=== PATIENT | male | born 1965 ===

== ENCOUNTER 2023-06-23 11:18 | Inpatient (IN) ==
[2023-06-23] MEDS ORDERED: fentaNYL 100 mcg/2 ml 50 MCG/ML VIAL ONE ×2 (11:26→11:28)
[2023-06-23] MEDS: Heparin - STEMI 5,000 UNITS/ML 1 ml VIAL IV ONE ×2 (11:27→11:51)
[2023-06-23] MEDS: fentaNYL 100 mcg/2 ml 50 MCG/ML VIAL IV SLOW PU ONE (11:27)
[2023-06-23] MEDS ORDERED: Midazolam 5 mg/5 ml VIAL 1 mg/ml 5 ml VIAL (5 mg) ONE (11:28)
[2023-06-23] MEDS ORDERED: Heparin 1,000 UNIT/ML 10 ml (10,000 UNITS) CATHLAB/DIALYSIS ONE (11:28)
[2023-06-23] MEDS ORDERED: VERAPAMIL 2.5 MG/ML 2 ML VIAL ** 5 mg/2 ml ONE (11:28)
[2023-06-23] MEDS ORDERED: nitroGLYCERIN DRIP 25,000 MCG/250 ML BTL ONE (11:29)
[2023-06-23] MEDS ORDERED: Iohexol 350 (CONTRAST) 200 ML MDV IV ONE (11:29)
[2023-06-23] MEDS ORDERED: Lidocaine 1% MPF 5 ML VIAL ONE (11:29)
[2023-06-23] MEDS ORDERED: Heparin 2 UNITS/ML 1000 mls 2,000 ML IV ONE (11:29)
[2023-06-23 11:33] LABS: ABS Basophils 0.1 10^3/uL (0.0-0.1); ABS Eosinophils 0.1 10^3/uL (0.0-0.5); ABS Lymphocytes 2.8 10^3/uL (1.0-4.8); ABS Monocytes 1.5 10^3/uL (0.0-1.1); ABS Neutrophils 5.7 10^3/uL (1.5-7.6); ABS Nucleated RBC 0.01 10^3/ul; Eosinophil % 1.2 %; Hematocrit 42.1 % (38-53); Hemoglobin 14.8 g/dL (13.2-16.3); Lymphocyte % 27.7 %; Mean Corpuscular Hemoglobin 31.9 pg (27-33); Mean Corpuscular Volume 91.1 fL (80-97); Mean Platelet Volume 7.6 fL (7.5-11.2); Platelet Count 309 10^3/uL (150-450); Red Blood Count 4.62 10^6/uL (4.06-5.63); Red Cell Distribution Width 12.7 % (12-17); White Blood Count 10.1 10^3/uL (3.6-10.2)
[2023-06-23] MEDS ORDERED: Morphine 4 MG/ML VIAL (1 ml) ONE (11:48)
[2023-06-23 11:49] LABS: INR 0.98 (0.83-1.13)
[2023-06-23] MEDS: Morphine 4 MG/ML VIAL (1 ml) IV ONE (11:50)
[2023-06-23 11:57] LABS: Albumin 4.5 g/dL (3.2-5.2); Albumin/Globulin Ratio 1.9 (1-3); Calcium 9.6 mg/dL (8.6-10.3); Creatinine, Serum 1.14 mg/dL (0.67-1.17); Globulin 2.4 g/dL (2-4); Magnesium 2.1 mg/dL (1.9-2.7); Potassium 3.7 mmol/L (3.5-5.0); Total Bilirubin 0.7 mg/dL (0.2-1.0); Total Protein 6.9 g/dL (6.4-8.9); eGFR CKD-EPI 75.5 (>60)
[2023-06-23] MEDS ORDERED: Bivalirudin 250 MG VIAL ONE ×2 (12:14→12:29)
[2023-06-23] MEDS ORDERED: Eptifibatide IV (Load dose) 2 MG/ML 10 ml VIAL ONE ×2 (13:16→13:30)
[2023-06-23] MEDS ORDERED: niCARdipine 0.1MG/ML IVPREMIX 20 MG/200 ML BAG IV ONE (13:16)
[2023-06-23] MEDS ORDERED: Iohexol 350 (CONTRAST) 100 ML PAK IV ONE (13:24)
[2023-06-23] MEDS ORDERED: Heparin 2 UNITS/ML 1000 mls 1,000 ML IV ONE (13:34)
[2023-06-23] MEDS ORDERED: Morphine 2 MG/ML SYRINGE IV PRN (14:21)
[2023-06-23 14:58] LABS: ABS Lymphocytes 0.8 10^3/uL (1.0-4.8); ABS Monocytes 0.7 10^3/uL (0.0-1.1); ABS Neutrophils 9.9 10^3/uL (1.5-7.6); ABS Nucleated RBC 0.01 10^3/ul; Eosinophil % 0.3 %; Hematocrit 38.4 % (38-53); Hemoglobin 13.5 g/dL (13.2-16.3); Mean Corpuscular Hemoglobin 32.3 pg (27-33); Mean Corpuscular Hgb Conc 35.3 g/dL (31-36); Mean Corpuscular Volume 91.6 fL (80-97); Mean Platelet Volume 7.8 fL (7.5-11.2); Platelet Count 246 10^3/uL (150-450); Red Blood Count 4.19 10^6/uL (4.06-5.63); Red Cell Distribution Width 12.4 % (12-17); White Blood Count 11.4 10^3/uL (3.6-10.2)
[2023-06-23] MEDS: NS 0.9% 1000 ml BAG 1,000 ML IV SCH (15:07)
[2023-06-23 15:24] LABS: High Sensitivity Troponin 1 Hr 9214 pg/mL (<20)
[2023-06-23] MEDS: Heparin DRIP 25,000 UNITS BAG 25,000 UNITS/250 ML BAG IV SCH (15:45)
[2023-06-23 15:49] LABS: Creatinine, Serum 1.01 mg/dL (0.67-1.17); eGFR CKD-EPI 87.3 (>60)
[2023-06-23] MEDS: methylPREDNISolone SOD SUCC 125 mg 2 ML VIAL IV ONE (17:47)
[2023-06-23] MEDS: methylPREDNISolone SOD SUCC 40 mg/ml 1 ml VIAL ONE (17:47)
[2023-06-23] MEDS: Pantoprazole VIAL 40 MG VIAL IV SCH (19:25)
[2023-06-23] MEDS: Heparin 5000 UNITS/ML 1 mL VIAL IV SCH (22:57)
[2023-06-24 05:02] LABS: ABS Lymphocytes 0.6 10^3/uL (1.0-4.8); ABS Monocytes 0.5 10^3/uL (0.0-1.1); ABS Neutrophils 8.6 10^3/uL (1.5-7.6); Hematocrit 39.6 % (38-53); Hemoglobin 14.1 g/dL (13.2-16.3); Lymphocyte % 6.1 %; Mean Corpuscular Hemoglobin 32.4 pg (27-33); Mean Corpuscular Hgb Conc 35.7 g/dL (31-36); Mean Corpuscular Volume 90.9 fL (80-97); Mean Platelet Volume 7.8 fL (7.5-11.2); Platelet Count 297 10^3/uL (150-450); Red Blood Count 4.36 10^6/uL (4.06-5.63); Red Cell Distribution Width 12.5 % (12-17); White Blood Count 9.7 10^3/uL (3.6-10.2)
[2023-06-24 05:45] LABS: Albumin 4.2 g/dL (3.2-5.2); Albumin/Globulin Ratio 1.8 (1-3); Calcium 9.3 mg/dL (8.6-10.3); Creatinine, Serum 0.9 mg/dL (0.67-1.17); Globulin 2.4 g/dL (2-4); Potassium 4.3 mmol/L (3.5-5.0); Total Bilirubin 0.7 mg/dL (0.2-1.0); Total Protein 6.6 g/dL (6.4-8.9); eGFR CKD-EPI 100.2 (>60)
[2023-06-24] MEDS: Enoxaparin 40 MG/0.4 ML SYR SUBCUT SCH (20:03)
[2023-06-25 04:48] LABS: ABS Eosinophils 0.1 10^3/uL (0.0-0.5); ABS Lymphocytes 1.4 10^3/uL (1.0-4.8); ABS Neutrophils 5.4 10^3/uL (1.5-7.6); Eosinophil % 1.6 %; Hematocrit 37.1 % (38-53); Hemoglobin 13.2 g/dL (13.2-16.3); Lymphocyte % 18.2 %; Mean Corpuscular Hemoglobin 32.5 pg (27-33); Mean Corpuscular Hgb Conc 35.5 g/dL (31-36); Mean Corpuscular Volume 91.6 fL (80-97); Mean Platelet Volume 7.8 fL (7.5-11.2); Platelet Count 281 10^3/uL (150-450); Red Blood Count 4.04 10^6/uL (4.06-5.63); Red Cell Distribution Width 12.4 % (12-17)
[2023-06-25 05:31] LABS: Calcium 8.9 mg/dL (8.6-10.3); Creatinine, Serum 1.16 mg/dL (0.67-1.17); Magnesium 1.9 mg/dL (1.9-2.7); Potassium 3.9 mmol/L (3.5-5.0); eGFR CKD-EPI 73.9 (>60)
[2023-06-25] MEDS: Magnesium Sulfate 2 gm BAG 2 GM/50 ML BAG IVPB ONE (08:15)
[2023-06-25 08:36] LABS: Albumin 3.9 g/dL (3.2-5.2); Direct Bilirubin 0.1 mg/dL (0.03-0.18); Indirect Bilirubin 0.3 mg/dL (0.3-1.0); Total Bilirubin 0.4 mg/dL (0.2-1.0); Total Protein 5.9 g/dL (6.4-8.9)
[2023-06-25] MEDS ORDERED: Sulfur Hexaflouride MICROSPHR 25 MG VIAL ONE (10:22)
[2023-06-26 06:32] LABS: Hematocrit 38.8 % (38-53); Hemoglobin 13.7 g/dL (13.2-16.3); Mean Corpuscular Hemoglobin 32.3 pg (27-33); Mean Corpuscular Hgb Conc 35.3 g/dL (31-36); Mean Corpuscular Volume 91.5 fL (80-97); Mean Platelet Volume 7.9 fL (7.5-11.2); Platelet Count 313 10^3/uL (150-450); Red Blood Count 4.24 10^6/uL (4.06-5.63); Red Cell Distribution Width 12.3 % (12-17); White Blood Count 7.3 10^3/uL (3.6-10.2)
[2023-06-26 06:52] LABS: Calcium 9.2 mg/dL (8.6-10.3); Creatinine, Serum 1.07 mg/dL (0.67-1.17); Magnesium 2.3 mg/dL (1.9-2.7); Potassium 4.2 mmol/L (3.5-5.0); eGFR CKD-EPI 81.4 (>60)
[2023-06-26 09:46] VITALS: BP 127/85
[2023-06-26 10:27] LABS: ABS Basophils 0.1 10^3/uL (0.0-0.1); ABS Eosinophils 0.2 10^3/uL (0.0-0.5); ABS Lymphocytes 1.5 10^3/uL (1.0-4.8); ABS Monocytes 0.9 10^3/uL (0.0-1.1); ABS Neutrophils 4.6 10^3/uL (1.5-7.6); Eosinophil % 2.8 %; Lymphocyte % 20.7 %
== END 2023-06-26 13:35 | disposition home or self-care (01) | DRG 174 ==
LOC: ED 11:18 → ICU 11:51 → CHICATH 11:51 → MED 11:53 → OBSVTOIN 14:30 → SUATTDRO 14:30 → MED 06-26 04:35
PROVIDERS: ADMIT Emergency Medicine; ATTEND Internal Medicine